=== PATIENT | female | born 1960 | race Caucasian/White ===

== ENCOUNTER 2016-05-03 00:12 | Emergency (ER) | payer OTHER ==
[2016-05-03 00:18] VITALS: RESP 18
--- NOTE | 2016-05-03 00:44 | CPEKG ---
Heart Rate: 73 RR Interval: 822 P-R Interval: 140 QRSD Interval: 96 QT Interval: 396 QTC Interval: 437 P [place]: 55 QRS [place]: 49 T Wave [place]: 47 EKG Severity - NORMAL ECG - EKG Impression: SINUS RHYTHM Electronically Signed By: Dylan Fajardo 03-May-2016 03:04:38
[2016-05-03 01:08] LABS: ANION GAP 15 mEq/L (8-16); CALCIUM 9.7 mg/dL (8.5-10.4); CARBON DIOXIDE 23 mEq/l (22-31); CHLORIDE 110 mEq/L (97-110); CREATININE 0.7 mg/dL (0.6-1.0); ETHANOL SERUM 172 mg/dL (0-10); GLOMERULAR FILTRATION RATE > 60; GLUCOSE 92 mg/dL (70-100); POTASSIUM 3.6 mEq/L (3.5-5.2); SODIUM 148 mEq/L (134-144)
[2016-05-03 01:11] LABS: % IMMATURE GRANULYOCYTES 0.2 % (0.0-1.1); ABSOLUTE IMMATURE GRANULOCYTES 0.01 10^3/uL (0.00-0.10); ADD DIFF? NO; ADD MORPH? NO; ADD SCAN? NO; ATYPICAL LYMPHOCYTE FLAG 10 (0-99); FRAGMENT RBC FLAG 0 (0-99); HEMATOCRIT 40.7 % (38.0-47.0); HEMOGLOBIN 13.6 g/dL (12.6-16.3); LEFT SHIFT FLG 0 (0-99); LIPEMIA HEMOLYSIS FLAG 80 (0-99); MEAN CELL HEMOGLOBIN 32.9 pg (27.9-34.1); MEAN CELL HEMOGLOBIN CONCENTR. 33.4 g/dL (32.4-36.7); MEAN CELL VOLUME 98.5 fL (81.5-99.8); MEAN PLATELET VOLUME 9.8 fL (8.7-11.7); PLATELET CLUMPS FLAG 0 (0-99); PLATELET COUNT 231 10^3/uL (150-400); RED BLOOD CELL COUNT 4.13 10^6/uL (4.18-5.33); RED CELL DISTRIBUTION WIDTH 12.1 % (11.5-15.2)
[2016-05-03 01:20] LABS: TROPONIN I < 0.012 ng/mL (0-0.034)
--- NOTE | 2016-05-03 01:38 | EDPHY ---
H & P Stated Complaint: syncope w/ facil trauma Time Seen by Provider: 05/03/16 00:34 HPI/ROS: Chief Complaint: Syncope, facial injury HPI: 55-year-old woman had a syncopal event this evening after standing. Patient states that she has been celebrating her 's per today's evening. Has been drinking some wine. Was sitting on the couch later in the evening. When she got up to go to bed she felt lightheaded and had a syncopal episode call while falling forward with striking her face on a table. She was unconscious for a couple of seconds. This was witnessed by her . She had noted injury to her left upper incisor which was not out of place. Patient' s states that she then started repetitively questioning what happened. Right now the patient does not have recollection of events. She remembers celebrating with a birthday green party earlier but does not remember getting out, falling, does not remember her trip to the hospital. Denies any neck pain. No numbness or tingling. Is brought now complaining of pain in her upper mouth. ROS: 10 point Review of Systems is negative except as noted in the HPI. PMH: Depression Medications: Zoloft, Zyrtec Allergies: No known drug allergies Social History: No smoking, occasional alcohol, no recreational drug use Family History: No heart disease or sudden cardiac Physical Exam: Gen: Awake, Alert, No Distress HEENT: Nose: no rhinorrhea Eyes: PERRLA, EOMI Mouth: Moist mucosa there is an avulsion of her left upper central incisor (see tooth 9) with rotation. She has gingival laceration above that tooth. Neck: Supple, no JVD Chest: nontender, lungs clear to auscultation Heart: S1, S2 normal, no murmur Abd: Soft, non-tender, no guarding Back: no CVA tenderness, no midline tenderness Ext: no edema, non-tender Skin: no rash Neuro: CN II-XII intact, Sensation grossly intact, Strength 5/5 in bilateral upper and lower extremities - Personal History LMP (Females 10-55): Post Menopausal Current Tetanus Diphtheria and Acellular Pertussis (TDAP): Yes - Medical/Surgical History Other PMH: depression - Social History Smoking Status: Never smoked Constitutional: Initial Vital Signs Heart Rate 79 05/03/16 00:15 Respiratory Rate 18 05/03/16 00:15 Blood Pressure 131/85 H 05/03/16 00:15 O2 Sat (%) 95 05/03/16 00:15 O2 Delivery Mode Room Air Allergies/Adverse Reactions: SEASONAL Allergy (Mild, Uncoded 12/28/08 14:43) Other-Enter Comments Home Medications: Medication Instructions Recorded ZYRTEC 05/03/16 Zoloft 05/03/16 Medical Decision Making - Diagnostics EKG Interpretation: ECG time: 12:42 a.m., sinus rhythm with a rate of 73, normal axis, normal intervals, no acute ST or T-wave changes. Impression: Normal ECG. Imaging: CT head: Negative for acute intracranial injury per Dr. Farfan CT face: There is a small alveolar ridge avulsion above the avulsed tooth. No other significant facial fractures per Dr. Farfan. Procedures: Patient presented with an avulsed 9. Upper incisor. This has been replaced by me. Tooth was then splinted into place with dental cement crossing teeth 8 9 in 10 with good result. She does have a gingival laceration which is not deep which will be left to repair by the oral surgeon. ED Course/Re-evaluation: CT scan of the head and face are noted. She has dental avulsion with alveolar ridge oval avulsion but no other fractures. Patient is awake alert. Blood alcohol is noted to be 179. I do think this is a contributor to her syncopal event. ECG shows no acute changes. She will follow up with the oral surgeon for [place] morning. - Data Points Laboratory Results: Laboratory Results 05/03/16 00:40 05/03/16 00:40 05/03/16 05/03/16 05/03/16 00:40 00:40 00:40 WBC 4.56 10^3/uL 10^3/uL (3.80-9.50) RBC 4.13 10^6/uL L 10^6/uL (4.18-5.33) Hgb 13.6 g/dL g/dL (12.6-16.3) Hct 40.7 % % (38.0-47.0) MCV 98.5 fL fL (81.5-99.8) MCH 32.9 pg pg (27.9-34.1) MCHC 33.4 g/dL g/dL (32.4-36.7) RDW 12.1 % % (11.5-15.2) Plt Count 231 10^3/uL 10^3/uL (150-400) MPV 9.8 fL fL (8.7-11.7) Neut % (Auto) 49.6 % % (39.3-74.2) Lymph % (Auto) 34.6 % % (15.0-45.0) [place] % (Auto) 12.1 % % (4.5-13.0) Eos % (Auto) 2.2 % % (0.6-7.6) Baso % (Auto) 1.3 % % (0.3-1.7) Nucleat RBC Rel Count 0.0 % % (0.0-0.2) Absolute Neuts (auto) 2.26 10^3/uL 10^3/uL (1.70-6.50) Absolute Lymphs (auto) 1.58 10^3/uL 10^3/uL (1.00-3.00) Absolute Monos (auto) 0.55 10^3/uL 10^3/uL (0.30-0.80) Absolute Eos (auto) 0.10 10^3/uL 10^3/uL (0.03-0.40) Absolute Basos (auto) 0.06 10^3/uL 10^3/uL (0.02-0.10) Absolute Nucleated RBC 0.00 10^3/uL 10^3/uL (0-0.01) Immature Gran % 0.2 % % (0.0-1.1) Immature Gran # 0.01 10^3/uL 10^3/uL (0.00-0.10) Sodium 148 mEq/L H mEq/L (134-144) Potassium 3.6 mEq/L mEq/L (3.5-5.2) Chloride 110 mEq/L mEq/L (97-110) Carbon Dioxide 23 mEq/l mEq/l (22-31) Anion Gap 15 mEq/L mEq/L (8-16) BUN 13 mg/dL mg/dL (7-23) Creatinine 0.7 mg/dL mg/dL (0.6-1.0) Estimated GFR > 60 Glucose 92 mg/dL mg/dL (70-100) Calcium 9.7 mg/dL mg/dL (8.5-10.4) Troponin I < 0.012 ng/mL ng/mL (0-0.034) Beta HCG, Qual NEGATIVE Ethyl Alcohol 172 mg/dL H mg/dL (0-10) Departure - Departure Disposition: Home, Routine, Self-Care Clinical Impression: Syncope, Alcohol intoxication, Tooth avulsion Condition: Good Instructions: Syncope (ED), Acute Dental Trauma (ED) Additional Instructions: Follow up with the oral surgeon later this morning. Call for next available appointment. Follow up with primary care doctor regarding workup for syncope. Return to the emergency depart for increasing headache, nausea, vomiting coming dental pain, or any other concerns. Referrals: Blue Taylor MD [Primary Care Provider] - As per Instructions Javier Martin DDS [Doctor of Dental Surgery] - As per Instructions
[2016-05-03 02:23] VITALS: BP 113/72; PULSE 80; TEMP 97.5; O2SAT 93
== END 2016-05-03 02:23 | disposition home or self-care (01) ==
DX: S03.2XXA Dislocation of tooth, initial encounter (principal); R55 Syncope and collapse; F10.129 Alcohol abuse with intoxication, unspecified; W01.198A Fall on same level from slipping, tripping and stumbling with subsequent striking against other object, initial encounter; Y93.89 Activity, other specified
CPT/HCPCS: G0480

== ENCOUNTER → 2016-08-16 | Outpatient (CLI) | payer OTHER | LOC: FIMAGING 08:50 | PROVIDERS: ATTEND Obstetrics & Gynecology | DX: Z12.31 Encounter for screening mammogram for malignant neoplasm of breast (principal); Z80.3 Family history of malignant neoplasm of breast | CPT/HCPCS: G0202 ==

== ENCOUNTER → 2017-11-11 | Outpatient (CLI) | payer OTHER | LOC: FIMAGING 12:57 | PROVIDERS: ATTEND Obstetrics & Gynecology | DX: Z13.820 Encounter for screening for osteoporosis (principal); M85.89 Other specified disorders of bone density and structure, multiple sites; Z78.0 Asymptomatic menopausal state ==

== ENCOUNTER 2017-12-25 04:41 | Emergency (ER) | payer OTHER ==
[2017-12-25] MEDS ORDERED: KETOROLAC 15 MG/1 ML SDV IM ONE (05:02)
[2017-12-25] MEDS ORDERED: KETOROLAC 30 MG/1 ML SDV ONE (05:04)
[2017-12-25] MEDS ORDERED: ACETAMINOPHEN 500 MG TAB PO ONE (05:20)
[2017-12-25] MEDS ORDERED: DIAZEPAM 5 MG TAB PO ONE (05:21)
--- NOTE | 2017-12-25 06:44 | EDPHY ---
H & P Stated Complaint: R shoulder pain, "feels like a pinched nerve", started yesterday Time Seen by Provider: 12/25/17 04:46 HPI/ROS: HPI The patient presents with right-sided shoulder pain which started spontaneously yesterday. It started slowly and has gotten progressively worse she describes it as an aching pain that feels like a pinched nerve. She tried massage, ice, naproxen without much improvement in her symptoms. She had trouble sleeping tonight because of the pain so came in. She denies any injury to the area. She has not had any neck pain. She denies any numbness or tingling of her arm. She has never had this pain before.. REVIEW OF SYSTEMS 10 systems were reviewed and negative with the exception of the elements mentioned in the history of present illness. PMHx: History of depression Soc Hx: Nonsmoker, housed PHYSICAL General Appearance: Alert, tearful Eyes: Pupils equal and round no pallor or injection ENT, Mouth: Mucous membranes moist Respiratory: There are no retractions, lungs are clear to auscultation Cardiovascular: Regular rate and rhythm Gastrointestinal: Abdomen is soft and non-tender, no masses, bowel sounds normal Neurological: A&O, moves all extremities Skin: Warm and dry, no rashes Musculoskeletal: Neck is supple non tender, there is tenderness of her left posterior chest in the middle of her Lat muscle, there is no overlying skin change, there is full range of motion of her shoulder Extremities: symmetrical, full range of motion Psychiatric: Patient is oriented X 3, there is no agitation Source: Patient Exam Limitations: No limitations - Personal History Current Tetanus Diphtheria and Acellular Pertussis (TDAP): Yes - Medical/Surgical History Hx Asthma: No Hx Chronic Respiratory Disease: No Hx Diabetes: No Hx Cardiac Disease: No Hx Renal Disease: No Hx Cirrhosis: No Hx Alcoholism: No Hx HIV/AIDS: No Hx Splenectomy or Spleen Trauma: No Other PMH: depression - Social History Smoking Status: Never smoked Constitutional: Initial Vital Signs Respiratory Rate 20 12/25/17 04:44 O2 Delivery Mode Room Air Allergies/Adverse Reactions: SEASONAL Allergy (Mild, Uncoded 12/25/17 04:43) Other-Enter Comments Home Medications: Medication Instructions Recorded ZYRTEC 05/03/16 Zoloft 05/03/16 Lidocaine [Lidoderm] 1 each TP AD PRN #15 adh..patch 12/25/17 Medical Decision Making Procedures: Trigger point injection: I located the point of maximal tenderness which overlies the patient mid scapula. Using a 27 gauge needle I initially made a skin wheal using bupivacaine 0.5%. I then injected a total of 5 mL of bupivacaine below the skin surface. Patient tolerated the procedure well with no immediate complications. Differential Diagnosis: 57-year-old female with gradual onset of right-sided pain overlying her scapula which is atraumatic with no prior history of similar. She is neurovascularly intact. She does not have any skin changes. She does not have any chest pain, shortness of breath, systemic symptoms. Here, I performed a trigger point injection with minimal improvement in her symptoms. She then was given Toradol, Tylenol, Valium which reduced her pain. Plan for ongoing ibuprofen, Tylenol, Valium as an outpatient with return if symptoms worsen, otherwise can follow up with her PMD. Differential diagnosis includes muscle strain, muscle spasm, less likely cervical radiculopathy. - Data Points Medications Given: Discontinued Medications Acetaminophen (Tylenol) 1,000 mg PO EDNOW ONE Stop: 12/25/17 05:21 Last Admin: 12/25/17 05:25 Dose: 1,000 mg Diazepam (Valium) 5 mg PO EDNOW ONE Stop: 12/25/17 05:22 Last Admin: 12/25/17 05:25 Dose: 5 mg Ketorolac Tromethamine (Toradol) 30 mg IM EDNOW ONE Stop: 12/25/17 05:03 Last Admin: 12/25/17 05:07 Dose: 30 mg Miscellaneous Medication (Icy Hot Lidocaine/Menthol 4%/1% Patch) 1 patch TD EDNOW ONE Stop: 12/25/17 08:31 Last Admin: 12/25/17 08:32 Dose: 1 patch Departure - Departure Disposition: Home, Routine, Self-Care Clinical Impression: Shoulder pain, right Qualifiers: Chronicity: acute Qualified Code(s): M25.511 - Pain in right shoulder Condition: Good Instructions: Shoulder Pain (ED) Additional Instructions: I recommend you continue the Naprosyn 500 mg every 12 hr, you should take Tylenol 650 mg every 6 hr with this. I have given you a few tabs of Valium I recommend you take 1/2 to 1 tab every 6 hr as needed for pain not relieved with the Naprosyn and Tylenol. Please follow-up with your primary care doctor in a few days if your pain continues. Referrals: Katie Petit MD [Primary Care Provider] - As per Instructions Prescriptions: Lidocaine [Lidoderm] 1 each TP AD PRN #15 adh..patch PRN Reason: Pain, Breakthrough
[2017-12-25 07:28] VITALS: BP 106/72
[2017-12-25] MEDS ORDERED: LIDOCAINE 4%/MENTHOL 1% PATCH TD ONE ×2 (08:24→08:30)
[2017-12-25] MEDS ORDERED: PATCH REMOVAL 1 EA PATCH TD SCH (21:00)
== END 2017-12-25 08:42 | disposition home or self-care (01) ==
PROC: 3E023BZ Introduction of Anesthetic Agent into Muscle, Percutaneous Approach (ICD-10-PCS; principal; 2017-12-25)
DX: M25.511 Pain in right shoulder (principal)
CPT/HCPCS: J1885

== ENCOUNTER → 2017-12-26 | Outpatient (CLI) | payer OTHER | LOC: FLAB 11:01 | PROVIDERS: ATTEND Physician Assistant | DX: M54.6 Pain in thoracic spine (principal); M41.24 Other idiopathic scoliosis, thoracic region; M51.84 Other intervertebral disc disorders, thoracic region ==

== ENCOUNTER → 2018-01-16 | Outpatient (CLI) | payer OTHER ==
[~2018-01-16] MED LIST: GADOBUTROL 10 ML VIAL IVP ONE
== END ==
LOC: FIMAGING 11:43
PROVIDERS: ATTEND Neurological Surgery
DX: M96.842 Postprocedural seroma of a musculoskeletal structure following a musculoskeletal system procedure (principal); G54.9 Nerve root and plexus disorder, unspecified
CPT/HCPCS: A9585